=== PATIENT | female | born 1960 | race African-American/Black ===

== ENCOUNTER → 2018-08-23 | Outpatient (CLI) | payer MEDICARE, MEDICAID | LOC: COL.RAD 15:18 | DX: M25.551 Pain in right hip (principal) ==

== ENCOUNTER → 2018-10-10 | Outpatient (CLI) | payer MEDICARE, MEDICAID | LOC: COL.RAD 08:52 | DX: M51.36 Other intervertebral disc degeneration, lumbar region (principal); M46.87 Other specified inflammatory spondylopathies, lumbosacral region ==

== ENCOUNTER → 2018-10-30 | Outpatient (CLI) | payer MEDICARE, MEDICAID | LOC: MHCPAIN 10:48 | DX: G89.29 Other chronic pain (principal); M79.2 Neuralgia and neuritis, unspecified; G90.50 Complex regional pain syndrome I, unspecified; M47.816 Spondylosis without myelopathy or radiculopathy, lumbar region | CPT/HCPCS: G0463 ==

== ENCOUNTER 2018-11-26 09:45 | Outpatient (RCR) | payer MEDICARE, MEDICAID | END 2018-12-02 | disposition still patient (30) | LOC: MKS.ESL.PT | DX: G90.50 Complex regional pain syndrome I, unspecified (principal); M79.671 Pain in right foot; M54.9 Dorsalgia, unspecified | CPT/HCPCS: G0283-GP ==

== ENCOUNTER 2019-01-27 14:00 | Outpatient (RCR) | payer MEDICARE, MEDICAID | END 2019-03-03 | disposition home or self-care (01) | LOC: MKS.ESL.PT | DX: M54.5 Low back pain (principal); M25.571 Pain in right ankle and joints of right foot; G90.50 Complex regional pain syndrome I, unspecified | CPT/HCPCS: G0283-GP ==

== ENCOUNTER → 2019-01-29 | Outpatient (CLI) | payer MEDICARE, MEDICAID | LOC: MHCPAIN 11:00 | DX: G89.29 Other chronic pain (principal); M47.817 Spondylosis without myelopathy or radiculopathy, lumbosacral region; M79.2 Neuralgia and neuritis, unspecified; G90.50 Complex regional pain syndrome I, unspecified | CPT/HCPCS: G0463 ==

== ENCOUNTER 2019-04-29 14:15 | Outpatient (RCR) | payer MEDICARE, MEDICAID | END 2019-05-14 | disposition still patient (30) | LOC: WSC | DX: G90.521 Complex regional pain syndrome I of right lower limb (principal) ==

== ENCOUNTER → 2021-03-15 | Outpatient (CLI) | payer MEDICARE, MEDICAID | LOC: MHCPAIN 09:55 | DX: M47.896 Other spondylosis, lumbar region (principal); M79.2 Neuralgia and neuritis, unspecified; G90.521 Complex regional pain syndrome I of right lower limb | CPT/HCPCS: G0463 ==

== ENCOUNTER → 2021-05-24 | Outpatient (CLI) | payer MEDICARE, MEDICAID | LOC: MHCPAIN 08:54 | DX: M54.2 Cervicalgia (principal); M47.816 Spondylosis without myelopathy or radiculopathy, lumbar region; M79.2 Neuralgia and neuritis, unspecified; M54.50 Low back pain, unspecified | CPT/HCPCS: G0463 ==

== ENCOUNTER 2021-05-27 08:15 | Outpatient (RCR) | payer MEDICARE, MEDICAID | END 2021-05-30 | disposition home or self-care (01) | LOC: WSPT | DX: M47.896 Other spondylosis, lumbar region (principal) ==

== ENCOUNTER 2021-06-24 09:45 | Outpatient (RCR) | payer MEDICARE, MEDICAID | END 2021-06-27 | disposition home or self-care (01) | LOC: WSC | DX: M47.896 Other spondylosis, lumbar region (principal) ==

== ENCOUNTER 2021-07-26 08:15 | Outpatient (RCR) | payer MEDICARE, MEDICAID | END 2021-07-28 | disposition home or self-care (01) | LOC: WSPT | DX: M47.896 Other spondylosis, lumbar region (principal) ==

== ENCOUNTER 2021-08-05 09:45 | Outpatient (RCR) | payer MEDICARE, MEDICAID | END 2021-08-27 | disposition home or self-care (01) | LOC: WSC | DX: M47.896 Other spondylosis, lumbar region (principal) ==

== ENCOUNTER 2021-10-07 11:08 | Inpatient (IN) | payer MEDICARE, MEDICAID ==
[~2021-10-07] VITALS: Ht 162.6 cm; Wt 73.1 kg
[2021-10-07] MEDS ORDERED: COSOPT 2%-0.5%10 ML (12:50)
[2021-10-07] MEDS ORDERED: LUMIGAN 7.5 ML7.5 M1 (12:51)
[2021-10-07] MEDS ORDERED: XIIDRA1 EACH (12:51)
[2021-10-07] MEDS ORDERED: PROTONIX 40MG T40 MG PO (12:51)
[2021-10-07] MEDS ORDERED: NEURONTIN600 MG/TAB PO (12:51)
[2021-10-07] MEDS ORDERED: NORVASC 5MG5 MG/TAB PO (12:52)
[2021-10-07] MEDS ORDERED: LIPITOR 40MG TA40 MG PO (12:53)
[2021-10-07] MEDS ORDERED: ASPIRIN E.C. 8181 MG PO (12:54)
[2021-10-07] MEDS ORDERED: ELIQUIS 5MG PO (12:57)
[2021-10-07 17:16] VITALS: BP 131/64; PULSE 62; TEMP 98.1
[2021-10-07 18:05] VITALS: BP 131/64; PULSE 62; TEMP 98.1
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
[2021-10-08 06:04] VITALS: BP 97/54; PULSE 91; TEMP 97.5
--- NOTE | 2021-10-08 10:52 | NUR ---
Initial visit attempt; Patient out of room, Horse Trekking Guide left card offering God's blessings and information regarding the availability of Spiritual Care at our Hospital.
--- NOTE | 2021-10-08 16:30 | NUR ---
Patient's family presents to the surgical nursing station upset that the patient had an incident in her bathroom. power press supervisor involved. Will attempt intake at a later time.
[2021-10-08 17:49] VITALS: BP 126/80; PULSE 65; TEMP 97.5
--- NOTE | 2021-10-08 19:00 | NUR ---
PT RESTING IN RECLINER. SLEEPY. NO DISTRESS AT THIS TIME.
--- NOTE | 2021-10-08 19:10 | NUR ---
PT TAKEN TO 3RD FLOOR PETER PER W/C FOR TORNADO WARNING. PT WITHOUT DISTRESS.
[2021-10-09 05:25] VITALS: BP 113/63; PULSE 56; TEMP 97.5
--- NOTE | 2021-10-09 09:15 | NUR ---
Assessment complete. Pt A&Ox4. Generalized weakness with left side weakness greater. Assisted to bathroom and back to recliner this morning 1A with walker and gait belt. Gait unsteady at times. Left foot drags as pt walks. Denies pain or other concerns this morning. Chair alarm on and call light in reach.
--- NOTE | 2021-10-09 15:04 | NUR ---
SUJATHA completed intake. Pt lives at home alone. Pt JESUS is her sister, Mary [phone]. Pt is independent on all ADLS and does not use any DME prior to coming in. Pt PCP is Dr. Dandre dozier and gets her medication from [facility]. Pt reports she did not have a DPOA-HC and requested she would like one made. SUJATHA informed pt leodan SW was a [place] notary pubic and could help her with it. SUJATHA gave pt 4 copies and put DPOA-HC in chart. Pt DOPA-HC, Mary shultz. No other needs stated. DC: home
[2021-10-09 18:00] VITALS: BP 127/77; PULSE 84; TEMP 98
--- NOTE | 2021-10-09 18:13 | NUR ---
Pt had good day. No c/o pain. Up to restroom several times today, tolerated walks well. Continues to be unsteady at times. Up in recliner for several hours. No BMs but is passing gas. Denies needs.
--- NOTE | 2021-10-09 18:55 | NUR ---
PT RESTING IN RECLINER. NO NEEDS AT THIS TIME. CALL LIGT IN REACH.
--- NOTE | 2021-10-10 06:08 | NUR ---
MOD ASSIST TO BR WITH WALKER. HAVING OCCASIONAL MUSCLE SPAMS IN LT THIGH. AMB TO SINK WASH FACE AND BRUSHED TEETH INDEPENDENTLY. BACK TO BED.
[2021-10-10 06:38] VITALS: BP 106/66; PULSE 77; TEMP 97.4
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
--- NOTE | 2021-10-10 15:06 | NUR ---
SUJATHA met with the patient to introduce oneself and to follow up. The patient was sitting up in her chair and states that she needed to see social work. She was curious about what she would need upon discharge. SUJATHA informed the patient that the team will evaluate what services or equipment she will need upon discharge and we will assist with getting the services or equipment ordered. The patient states that her family has already purchased her a rollator. The patient states that she will probably need in-home services. SUJATHA informed her the difference of home health services vs private duty services. The patient is interested in finding out if her Medicaid will approve any in-home services. SUJATHA provided the patient with [facility] Agency on Aging's contact phone number to set up an interview time, to inquire if her insurance will approve any hours. The patient verbalized understanding and she thanked SUJATHA for the information.
--- NOTE | 2021-10-10 15:21 | NUR ---
THE PATIENT HAS HAD AN EVENTFUL DAY WITH PT/OT/ST. PATIENT SHOWERED INDEPENDENTLY WITH ASSISTANCE INTO AND OUT OF THE SHOWER. THE PATIENT CONTINUES TO HAVE SOME WEAKNESS TO THE LEFT SIDE WITH DIFFICULTY PICKING UP THE FOOT OFF THE GROUND. NO OTHER CONCERNS THE PATIENT STATES SHE FEELS SAFE TODAY. WILL CONTINUE TO MONITOR.
[2021-10-10 18:00] VITALS: BP 131/87; PULSE 76; TEMP 97.8
--- NOTE | 2021-10-10 18:35 | NUR ---
AT 1740 THE PATIENT'S SISTER CAME RUNNING ONTO THE [facility] FLOOR YELLING OBSCENITIES ASKING "WHAT THE FUCK IS YOUR PROBLEM!? SOMEONE GET OFF YOUR ASS AND GET INTO MY SISTER'S FUCKING ROOM!!" THIS RN WAS SITTING AT THE [facility] DESK UNAWARE OF THE CALL MADE BY THE PATIENT. UPON ENTRY TO THE PATIENT'S ROOM, THE PATIENT WAS NOTABLY ALTERED. NEURO CHECK ON THE PATIENT SHOWS WEAKNESS IN BILATERAL ARMS, WEAKNESS IN BILATERAL LEGS, AND WORSENING ON THE RIGHT SIDE RATHER THAN THE LEFT THAT WAS PREVIOUSLY AFFECTED. THE PATIENT FOLLOWED COMMANDS, WAS ABLE TO SMILE WITH MINOR ASSYMETRY ON THE RIGHT SIDE, WAS ABLE TO STICK OUT HER TONGUE HOWEVER IT DID DEVIATE SLIGHTLY TO THE LEFT. THE PATIENT'S EYES WOULD NOT TRACK TO THE LEFT SIDE, AND WERE VERY SLUGGISH. THE PATIENT WAS DISORIENTED, DID NOT KNOW WHERE SHE WAS, AND WAS VERY SCARED AND TEARFUL. INITIAL BLOOD PRESSURE WAS 152/100 AND HR WAS 102 OXYGEN SATURATION WAS 95%. THE PROVIDER, CARLOS HASSAN WAS NOTIFIED IMMEDIATELY AND WAS ASKED TO COME TO THE PATIENT'S ROOM. PROVIDER ARRIVED AND DID A NEURO CHECK. THE PROVIDER ORDERED A HEAD/NECK CT STAT. THIS RN TOOK THE PATIENT DOWN TO CT. PATIENT HAD NO IV, SO THIS RN STARTED A 20G DIFFUSICS IN THE LEFT FOREARM. WHILE AT CT, THE PATIENT EXPRESSED THAT SHE WAS HAVING A VERY BAD HEADACHE, AND WAS HAVING BLURRY VISION. UPON RETURN TO THE MEDICAL FLOOR, THE PATIENT WAS CRYING IN FEAR. THIS RN REQUESTED ANXIETY MEDICATION FOR THE PATIENT DUE TO SEVERE ANXIETY SHE WAS DISPLAYING. WHILE IN THE ROOM, THE PATIENT BEGAN VOMITTING. CONTACTED THE PROVIDER AGAIN TO ASK FOR ZOFRAN. BOTH ATIVAN AND ZOFRAN WERE ADMINISTERED. THE PATIENT DID BEGIN TO CALM DOWN AND STATED THAT SHE COULD SEE PEOPLES FACES AGAIN AND THAT SHE WAS NOT ASK SCARED.
--- NOTE | 2021-10-10 19:10 | NUR ---
REPORT GIVEN TO KATIA SAINZ.
--- NOTE | 2021-10-10 23:55 | NUR ---
PATIENT DROWSY ON ROOM ENTRY. BEDSIDE SHIFT REPORT COMPLETED. FAMILY AT BEDSIDE. CTA REPORT DISCUSSED WITH SONYA GONZALEZ, NO ACUTE CHANGES, NO NEW ORDERS AT THIS TIME. PATIENT AMBULATED X1 ASSIST WITH WALKER TO BATHROOM AND VOIDED. EYES ARE EQUAL AND REACTIVE. SLIGHT L SIDED WEAKNESS TO UPPER ARM AND L FOOT DRAG NOTED WHEN WALKING. HS MEDS PER EMAR. PATIENT HAD CRACKERS AND PB FOR SNACK. PRN FLEXERIL GIVEN FOR MUSCLE PAIN.
[2021-10-11 05:18] VITALS: BP 102/65; PULSE 64; TEMP 97.7
--- NOTE | 2021-10-11 07:09 | NUR ---
Shift report received from maintenance supervisor 2nd shift RN [place]. Pt. lying in right side position in bed. Call light is within her reach
--- NOTE | 2021-10-11 09:12 | NUR ---
Pt. is sitting in recliner. She has just finished showering with OT. She denies pain or discomfort at this time. OT staff in room with pt helping her get dressed. Call light is within her reach
--- NOTE | 2021-10-11 09:50 | NUR ---
Pt. sitting up in recliner applying her make-up. She denies pain or discomfort at this time. She reported to Dr. Dietz this morning that her left eye seems different than her right eye. Left eye appears slightly puffy around the eye. No itching. No redness to sclera. No eye drainage or vision changes. Will continue to monitor. Pt. denies further needs at this time. Call light is within her reach
[2021-10-11 17:35] VITALS: BP 111/70; PULSE 78; TEMP 98.2
--- NOTE | 2021-10-11 17:37 | NUR ---
Pt. has completed her dinner. She is sitting in her recliner with BLE elevated on the foot rest. Pt's sister visited this afternoon and brought in a walker for pt. to use. Pt. label placed on walker with pt's permission. She denies pain or discomfort. Denies further needs. Call light is within her reach
--- NOTE | 2021-10-12 02:10 | NUR ---
PATIENT ALERT AND ORIENTED. DENIES PAIN. HS MEDS PER EMAR. REPORTS HER VISION IS BACK TO NORMAL FROM YESTERDAY. AMBULATES WITH STANDBY ASSIST AND USE OF NEW WALKER TO BATHROOM SEVERAL TIMES THROUGHOUT THE NIGHT WITHOUT ISSUE. INSTRUCTED PATIENT OF PROPER USE OF NEW WALKER AND ENCOURAGED USE OF BRAKES WHEN NEEDED.
[2021-10-12 05:39] VITALS: BP 118/80; PULSE 83; TEMP 97.7
--- NOTE | 2021-10-12 07:04 | NUR ---
Shift received from night guard RN. Pt. lying in left side position in bed. She denies pain or discomfort at this time, denies further needs. Call light is within her reach
--- NOTE | 2021-10-12 10:34 | NUR ---
Pt. ambulating in hallway with PT.
--- NOTE | 2021-10-12 14:33 | NUR ---
SUJATHA met with the patient to present and review the IPR Team Conference Note. The patient's sister, Mary, then arrived to her room. The team has set a discharge date for next Sunday, 10/21, with outpatient PT/OT and possible ST. The patient and her sister are in agreement to the plan. A patient/family meeting was scheduled for next Sunday, 10/18, at 1000. Mary plans to attend the meeting in person. SUJATHA updated IPR Director.
--- NOTE | 2021-10-12 16:18 | NUR ---
Pt resting in bed in a left side lying position. She reports feeling "worn out" after PT/OT today. She denies pain or discomfort. Denies further needs. Call light is within her reach
[2021-10-12 17:40] VITALS: BP 115/74; PULSE 94; TEMP 97.9
--- NOTE | 2021-10-12 20:01 | NUR ---
RESTING IN BED VISITING WITH FAMILY. DENIES NEEDS AT THIS TIME. LEFT SIDED WEAKNESS. DENESS FURTHER OR INCREASED WEAKNESS OR TINGLING TO RT SIDE. INT TO LT F/A. CALL LIGHT IN REACH. BED ALARM SET.
[2021-10-13 05:00] VITALS: BP 106/65; PULSE 83; TEMP 97.7
--- NOTE | 2021-10-13 16:20 | NUR ---
PT HAD GOOD THERAPY TODAY, FAMILY VISITS. DID MOVE FROM ONE ROOM TO ANOTHER DUE TO NEEDED UPGRADE TO COMPUTER IN ROOMS. HAD SOME ANIEXTY W CHANGES. XANAX GIVEN. CALL LIGHT WI REACH. NEEDS MET.
--- NOTE | 2021-10-13 19:36 | NUR ---
RECEIVED CHANGE OF SHIFT REPORT FROM DAY SHIFT RN.
[2021-10-14 05:27] VITALS: BP 107/62; PULSE 69; TEMP 97.8
--- NOTE | 2021-10-14 07:30 | NUR ---
CHANGE OF SHIFT REPORT GIVEN TO DAY SHIFT RNMARBELLA.
[2021-10-14 16:46] VITALS: BP 121/74; PULSE 80; TEMP 97.4
--- NOTE | 2021-10-14 18:21 | NUR ---
PT HAS DONE WELL TODAY, BEEN IN A CHEERFUL MOOD, STATES THAT SHE FEELS GOOD BESIDES THE CONSISTENT HEADACHE, HAS BEEN GIVEN TYLENOL WHEN REQUESTED. PT IS MOD-I IN ROOM WITH WALKER, TOLERATELY WELL. PT DENIES NEEDS. CALL LIGHT WITHIN REACH.
--- NOTE | 2021-10-14 19:00 | NUR ---
RECEIVED CHANGE OF SHIFT REPORT FROM DAY SHIFT RN.
--- NOTE | 2021-10-14 20:15 | NUR ---
PATIENT REPORTS L SIDED WEAKNESS MORE EVIDENT WITH FATIGUE. DENIES L SIDED WEAKNESS AND NONE OBSERVED AT THIS TIME.
[2021-10-15 05:13] VITALS: BP 105/69; PULSE 76; TEMP 97.8
--- NOTE | 2021-10-15 07:08 | NUR ---
CHANGE OF SHIFT REPORT GIVEN TO DAY SHIFT RNJERRI. PATIENT UP INDEPENDENTLY PER P.T. REPORTS PAIN IS MANAGED WITH FLEXERIL AND TYLENOL.
--- NOTE | 2021-10-15 07:27 | NUR ---
Shift report received from golf club weighter RN. Pt. resting in left side lying position. Call light is within her reach
--- NOTE | 2021-10-15 10:38 | NUR ---
Pt. has returned to unit after Group Therapy (PT). She remains Mod I in room. She denies pain or discomfort. Denies further needs. Call light is within her reach
[2021-10-15 17:32] VITALS: BP 117/82; PULSE 74; TEMP 97.9
--- NOTE | 2021-10-15 19:40 | NUR ---
RECEIVED CHANGE OF SHIFT REPORT FROM DAY SHIFT RN. PATIENT UP IN CHAIR CURRENTLY, VISITOR IN ROOM. PATIENT UP IN ROOM PER SELF WITH NO REPORTED PROBLEMS OR CONCERNS. PATIENT REQUESTING XANAX WITH [facility] JEANNIE. CALL LIGHT WITHN REACH.
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
[2021-10-16 05:52] VITALS: BP 108/66; PULSE 71; TEMP 97.8
--- NOTE | 2021-10-16 06:19 | NUR ---
PATIENT REPORT HAD BM LAST NIGHT AFTER HS MEDS GIVEN, REPORTED BM SOFT FORMED AND MEDIUM IN SIZE BUT WAS UNABLE TO RECALL COLOR OF STOOL. REPORTED ABD IS LESS BLOATED AND IS PASSING MORE FLATUS AFTER STOOL PASSED. DENIES ANY FURTHER NEEDS AT THIS TIME.
--- NOTE | 2021-10-16 06:59 | NUR ---
Shift report received from shift boss RN. Pt. resting supine in bed. Call light is within her reach
--- NOTE | 2021-10-16 07:03 | NUR ---
CHANGE OF SHIFT REPORT GIVEN TO DAY SHIFT RNJERRI.
--- NOTE | 2021-10-16 14:51 | NUR ---
Pt. reporting that she noticed a red, non-itchy rash to her left inner thigh after she showered this morning. Rash was not raised per pt. Rash is not currenlty present. Pt. stated that she applied emu oil and lavendar to the red area. Advised pt to notify nurse if she notices the rash again. Pt. v/u.
[2021-10-16 17:15] VITALS: BP 116/65; PULSE 73; TEMP 97.9
--- NOTE | 2021-10-16 19:12 | NUR ---
RECEIVED CHANGE OF SHIFT REPORT FROM DAY SHIFT RN. PATIENT UP IN ROOM PER SELF WITH NO REPORTED PROBLEMS OR CONCERNS. CALL LIGHT WITHIN REACH.
[2021-10-17 05:20] VITALS: BP 111/72; PULSE 78; TEMP 98.1
--- NOTE | 2021-10-17 06:58 | NUR ---
CHANGE OF SHIFT REPORT GIVEN TO DAY SHIFT RNJERRI.
--- NOTE | 2021-10-17 07:36 | NUR ---
Shift report received from security shift supervisor RN. Pt. awake in bed. HOB elevated approx 30 degrees. She denies pain/discomfort. Denies further needs. Call light is within her reach
[2021-10-17 11:04] VITALS: BP 112/64
--- NOTE | 2021-10-17 15:04 | NUR ---
Pt. resting in recliner. Denies pain or discomfort. She remains Mod I in room. She is looking forward to hospital discharge this week. She denies further needs. Call light is within her reach
[2021-10-17 17:19] VITALS: BP 127/71; PULSE 67; TEMP 98.4
--- NOTE | 2021-10-17 23:06 | NUR ---
PATIENT IN CHAIR AT ROOM ENTRY. C/O MODERATE HEADACHE. BP WAS 121/78. HS MEDS PER EMAR, PRN TYLENOL FOR HEADACHE. PATIENT REMAINS MOD I WITHOUT ISSUES. ICE GIVEN PER PATIENTS REQUEST FOR L EYE PUFFINESS. CURRENTLY IN BED, EYES CLOSED, RR EVEN AND UNLABORED.
[2021-10-18 05:41] VITALS: BP 98/70; PULSE 76; TEMP 97.8
--- NOTE | 2021-10-18 08:30 | NUR ---
PT SITTING UP IN CHAIR ON ROOM AIR. PT STATES THAT SHE DID HAVE A HEADACHE BUT GOT SOME TYLENOL AND IT FEELS BETTER NOW. THERAPY AT BEDSIDE READY TO WORK WITG PT. PT STATES THAT SHE DOES NOT NEED ANYTHIGN RIGHT NOW. "I AM JUST WAITING TO GET STARTED WORKING." CALL LIGHT IS WITHIN REACH.
--- NOTE | 2021-10-18 11:00 | NUR ---
Patient/Family meeting conducted w/ pt & sister. Also present was the MD, PT, OT, ST, & director of industrial relations. Dr. Dietz explained the medical aspect & answered questions. The team talked about how pt has been doing & answered questions. Informed them of d/c for 10/19/21, w/ recommendation for outpatient PT/OT. She feels she is doing better & ready to d/c Sunday. Sister did voice frustration w/ issues early on w/ staff answering call light.
--- NOTE | 2021-10-18 15:18 | NUR ---
SW met with patient and presented her with the [facility].IM form. Education provided and patient verbalized her agreement with discharge plan for tomorrow back to home with outpatient therapy. Signed original placed in the patient's chart and copy provided back to the patient. Patient verbalized that she would like therapy set up at the [facility] outpatient clinic on [address]. Provided patient with contact number [facility]
[2021-10-18 17:34] VITALS: BP 118/75; PULSE 88; TEMP 97.8
--- NOTE | 2021-10-18 18:26 | NUR ---
PT SITTING UP IN CHAIR WITH FAMILY AT BEDSIDE. PT STATES NO PAIN OR NEEDS AT THIS TIME. CALL LIGHT IS WITHIN REACH.
--- NOTE | 2021-10-18 22:07 | NUR ---
PATIENT ALERT AND ORIENTED. IN BED ON ROOM ENTRY. DENIES PAIN CURRENTLY BUT STATES SHE WAS HAVING SOME L EAR PAIN THAT IS RESOLVED AT THIS TIME. HS MEDS PER EMAR. DENIES ADDITIONAL NEEDS.
[2021-10-19 05:58] VITALS: BP 106/63; PULSE 75; TEMP 98.2
--- NOTE | 2021-10-19 07:06 | NUR ---
Shift report received from shift nurse manager RN. Pt awake and sitting in recliner. She denies pain/discomfort. Denies additional needs. She remains Mod I in room. Call light is within her reach
[2021-10-19] MEDS ORDERED: ELIQUIS 5MG PO (08:50)
[2021-10-19] MEDS ORDERED: FLEXERIL 1010 MG/TAB PO (08:50)
[2021-10-19] MEDS ORDERED: LIPITOR 40MG TA40 MG PO (08:51)
[2021-10-19] MEDS ORDERED: ASPIRIN E.C. 8181 MG PO (08:51)
[2021-10-19] MEDS ORDERED: AMITRIPTYLINE H10 M1 PO (08:51)
[2021-10-19] MEDS ORDERED: PROTONIX 40MG T40 MG PO (08:52)
[2021-10-19] MEDS ORDERED: TYLENOL 325MG325 MG PO (08:54)
[2021-10-19] MEDS ORDERED: ULTRAM 50MG TAB50 MG PO (08:54)
[2021-10-19] MEDS ORDERED: XANAX .25M0.25 MG/TA PO (08:56)
[2021-10-19] MEDS ORDERED: FIORICET 325 MG1 TA1 PO (09:26)
--- NOTE | 2021-10-19 10:49 | NUR ---
Discharge Summary, Health Summary, Home Meds reviewed with patient. Belonging were gathered by the patient. Discussed follow up appointments. Pt. verbalized understanding and had no questions. She is waiting for her sister to pick her up to drive her home
--- NOTE | 2021-10-19 11:39 | NUR ---
Pt escorted to vehicle and seatbelted for ride home
--- NOTE | 2021-10-19 12:30 | NUR ---
Per Dr. Palomo, pt. needs to schedule with ophthalmology. Called patient and she prefers [facility]. Will call to schedule an appt and will notify pt. of appt date/time
--- NOTE | 2021-10-19 12:38 | NUR ---
Medical Clerical Assistant contacted [facility] on [address] and scheduled PT appointment for 10/21/21 at 0900. OT to be scheduled with patient at her PT appointment. SW faxed referral and orders.
== END 2021-10-19 11:25 | disposition home or self-care (01) | DRG 57 ==
PROVIDERS: ADMIT Physical Medicine & Rehabilitation Sports Medicine
DX: I69.354 Hemiplegia and hemiparesis following cerebral infarction affecting left non-dominant side (principal); G90.521 Complex regional pain syndrome I of right lower limb; F15.20 Other stimulant dependence, uncomplicated; I69.392 Facial weakness following cerebral infarction; I69.318 Other symptoms and signs involving cognitive functions following cerebral infarction; I69.322 Dysarthria following cerebral infarction; I69.328 Other speech and language deficits following cerebral infarction; K59.00 Constipation, unspecified; G62.9 Polyneuropathy, unspecified; I10 Essential (primary) hypertension; K21.9 Gastro-esophageal reflux disease without esophagitis; H40.9 Unspecified glaucoma; Z79.01 Long term (current) use of anticoagulants; Z79.899 Other long term (current) drug therapy; Z79.82 Long term (current) use of aspirin; R42 Dizziness and giddiness; R11.10 Vomiting, unspecified
CPT/HCPCS: 99222; 99231-AI; 99232-AI; J2060; J2405; Q9967

== ENCOUNTER 2021-10-26 14:15 | Outpatient (RCR) | payer MEDICARE, MEDICAID ==
[~2021-10-26 14:15] MED LIST: AMITRIPTYLINE H10 M1 PO; ASPIRIN E.C. 8181 MG PO; COSOPT 2%-0.5%10 ML; ELIQUIS 5MG PO; FIORICET 325 MG1 TA1 PO; FLEXERIL 1010 MG/TAB PO; LIPITOR 40MG TA40 MG PO; LUMIGAN 7.5 ML7.5 M1; NEURONTIN600 MG/TAB PO; NORVASC 5MG5 MG/TAB PO; PROTONIX 40MG T40 MG PO; TYLENOL 325MG325 MG PO; ULTRAM 50MG TAB50 MG PO; XANAX .25M0.25 MG/TA PO; XIIDRA1 EACH
== END 2021-10-27 | disposition home or self-care (01) ==
LOC: WSC
DX: I69.354 Hemiplegia and hemiparesis following cerebral infarction affecting left non-dominant side (principal)

== ENCOUNTER 2021-11-24 13:30 | Outpatient (RCR) | payer MEDICARE, MEDICAID | END 2021-11-27 | disposition home or self-care (01) | LOC: WSC | DX: I69.354 Hemiplegia and hemiparesis following cerebral infarction affecting left non-dominant side (principal) ==

== ENCOUNTER 2021-12-06 22:38 | Inpatient (IN) | payer MEDICARE, MEDICAID ==
[~2021-12-06] VITALS: Ht 162.6 cm; Wt 68.6 kg
[2021-12-06 23:17] LABS: BASO # 0.1 K/mm3 (0.0-0.2); BASO % 0.6 % (0.0-2.0); EOS # 0.4 K/mm3 (0.0-0.7); EOS % 3.6 % (0.0-4.0); GRAN # 6.1 K/mm3 (1.4-6.5); GRAN % 52.4 % (42.2-75.2); HEMATOCRIT 39.2 % (37.0-47.0); HEMOGLOBIN 13.9 g/dl (12.5-16.0); LYMPH # 4.3 K/mm3 (1.2-3.4); LYMPH % 37.2 % (20.0-51.0); MEAN CELL VOLUME 87 fl (80.0-100.0); MEAN CORPUSCULAR HEMOGLOBIN 31 pg (27-31); MEAN CORPUSCULAR HGB CONC 36 g/dl (33.0-37.0); MEAN PLATELET VOLUME 11.9 fl (7.4-10.4); MONO # 0.7 K/mm3 (0.1-0.6); MONO % 5.9 % (1.7-9.3); PLATELET COUNT 174 K/mm3 (130-400); RED BLOOD COUNT 4.52 M/mm3 (4.10-5.30); REDCELL DISTRIBUTION WIDTH-CV 15.9 % (11.5-14.5)
[2021-12-07] VITALS (12 sets, daily range): BP systolic 90–169; BP diastolic 47–108; PULSE 60–119; TEMP 97.4–98.7
[2021-12-07 00:08] LABS: INR 1.3 (0.8-3.0); PROTHROMBIN TIME 14.4 SECONDS (9.7-12.8)
[2021-12-07 00:10] LABS: COLLECTION METHOD IN
[2021-12-07 00:14] LABS: ALBUMIN 3.6 gm/dL (3.5-5.0); BILIRUBIN,TOTAL 0.4 mg/dL (0.2-1.2); CALCIUM 8.9 mg/dL (8.4-10.2); CREATININE, serum 0.81 mg/dL (0.57-1.11); POTASSIUM 3.9 mmol/L (3.5-4.5); TOTAL PROTEIN 7.1 gm/dL (6.2-8.1)
[2021-12-07 00:19] LABS: SQUAMOUS EPITHELIAL None Seen /hpf (0-10); URINE BACTERIA None Seen /hpf (NONE SEEN); URINE RBC 0-2 /hpf (0-2)
[2021-12-07 00:26] LABS: PH 8 (5-8); URINE APPEARANCE Cloudy (CLEAR/HAZY); URINE COLOR Yellow (YELLOW)
[2021-12-07 00:27] LABS: URINE BLOOD Negative (NEGATIVE); URINE GLUCOSE Negative (NEGATIVE); URINE KETONE Negative (NEGATIVE); URINE NITRATE Negative (NEGATIVE); URINE PROTEIN(semi-quant) 1+ (NEGATIVE)
[2021-12-07 08:42] LABS: HEMOGLOBIN 12.4 g/dl (12.5-16.0); MEAN CELL VOLUME 85 fl (80.0-100.0); MEAN CORPUSCULAR HEMOGLOBIN 30 pg (27-31); MEAN CORPUSCULAR HGB CONC 36 g/dl (33.0-37.0); MEAN PLATELET VOLUME 11.1 fl (7.4-10.4); PLATELET COUNT 236 K/mm3 (130-400); RED BLOOD COUNT 4.12 M/mm3 (4.10-5.30); REDCELL DISTRIBUTION WIDTH-CV 13.7 % (11.5-14.5)
[2021-12-07 08:43] LABS: HEMATOCRIT 34.9 % (37.0-47.0)
[2021-12-07 12:23] LABS: TRICYCLIC ANTIDEPRESS URINE POSITIVE
[2021-12-08 03:34] VITALS: BP 104/70; PULSE 85; TEMP 97.7
[2021-12-08 04:32] LABS: C-REACTIVE PROTEIN 0.23 mg/dL (0.00-0.50)
[2021-12-08 04:45] LABS: CHOLESTEROL RISK RATIO 3.5
[2021-12-08 07:58] VITALS: BP 99/76; PULSE 69; TEMP 98.2
--- NOTE | 2021-12-08 09:28 | NUR ---
SUJATHA met with the patient to discuss discharge plan. The patient lives alone in [place]. She reports needing occasional assistance with with ADLs and has a cane and rollator. She states that she does everything on her own and was told that help in the home would be private pay. SUJATHA educated the patient on how private duty/recruiting manager services would be private pay. The patient does have Medicaid. SUJATHA informed her that she could apply to get hours approved through her insurance and how [facility] could assist her with this. The patient verbalized understanding. The patient's primary care provider is CARLOS Schafer and she receives her medications from [facility]. The patient's DPOA-HC is in EMR and it designates her sister, Mary Fernando (ph#[phone]). The alternate is her daughter, Yara Denton. They both live in [place]. The patient plans to return home upon discharge. SUJATHA discussed home health services upon discharge. The patient states she is "too spunky" for home health. PT/OT have been ordered. *Discharge plan: home. Will await PT/OT recs*
[2021-12-08 11:29] VITALS: BP 112/92; PULSE 83; TEMP 98.2
--- NOTE | 2021-12-08 11:40 | NUR ---
Rico cath dc'd as ordered w/out trauma or difficulty. Pt is currently NPO due to scheduled MRI. Discussed the importance of hydrating and urinating. Pt. v/u
--- NOTE | 2021-12-08 14:52 | NUR ---
The team is ready to discharge the patient today. PT recommeds outpatient PT. OT recommends home health. SW met with the patient to discuss their recommendations. The patient states that she already receives outpatient therapy at [facility] on [address] and does their aquatic therapy. She states that her next appointment there is tomorrow and she plans to resume this. No additional needs at this time.
[2021-12-08 15:23] VITALS: BP 95/52; PULSE 66; TEMP 98.2
--- NOTE | 2021-12-08 17:55 | NUR ---
PT WAS DISCHARGE AT 1600, STABLE WITH DAUGHTER, DISCHARGE INSTRUCTIONS GIVEN, FOLLOW UP APPOINTMENT INSTRUCTED.
== END 2021-12-08 16:00 | disposition home health service (06) | DRG 57 ==
LOC: COL.ER 22:38 → SURG 12-07 00:58
PROVIDERS: Personal Emergency Response Attendant; Psychiatry & Neurology Neurology; Student in an Organized Health Care Education/Training Program; ADMIT Internal Medicine
DX: I69.354 Hemiplegia and hemiparesis following cerebral infarction affecting left non-dominant side (principal); I69.320 Aphasia following cerebral infarction; F12.90 Cannabis use, unspecified, uncomplicated; I10 Essential (primary) hypertension; K21.9 Gastro-esophageal reflux disease without esophagitis; H40.9 Unspecified glaucoma; G62.9 Polyneuropathy, unspecified; I65.21 Occlusion and stenosis of right carotid artery; F17.210 Nicotine dependence, cigarettes, uncomplicated; F19.10 Other psychoactive substance abuse, uncomplicated; R51.9 Headache, unspecified; M79.661 Pain in right lower leg; Z86.718 Personal history of other venous thrombosis and embolism; Z79.01 Long term (current) use of anticoagulants; Z79.82 Long term (current) use of aspirin
CPT/HCPCS: OP; A9575; J0780; J1200; J1644; J2270; J2405; J7030; Q9967

== ENCOUNTER 2021-12-27 13:30 | Outpatient (RCR) | payer MEDICARE, MEDICAID | END 2021-12-28 | disposition home or self-care (01) | LOC: WSPT | DX: I69.354 Hemiplegia and hemiparesis following cerebral infarction affecting left non-dominant side (principal) ==

== ENCOUNTER → 2022-01-24 | Outpatient (CLI) | payer MEDICARE, MEDICAID | LOC: MC.RAD 09:14 | DX: Z12.31 Encounter for screening mammogram for malignant neoplasm of breast (principal); N63.20 Unspecified lump in the left breast, unspecified quadrant ==

== ENCOUNTER → 2023-01-09 | Outpatient (CLI) | payer MEDICARE, MEDICAID ==
[~2023-01-09] MED LIST changes: +AMERGE 2.5MG T2.5 MG PO; +AMITRIPTYLINE H75 M1 PO; -COSOPT 2%-0.5%10 ML; +COSOPT 2%-0.5%10 ML OU; +ISOPTIN SR120 MG PO; +NORCO 325 MG-51 TAB PO; +PLAVIX 75MG TAB75 MG PO; +TOPROL XL 25MG25 MG PO; +VISTARIL 2525 MG/CAP PO; +ZOFRAN 4MG T4 MG/TAB PO
== END ==
LOC: MHCPAIN 13:05
DX: M47.817 Spondylosis without myelopathy or radiculopathy, lumbosacral region (principal); M54.50 Low back pain, unspecified; G90.521 Complex regional pain syndrome I of right lower limb
CPT/HCPCS: G0463

== ENCOUNTER 2023-06-04 20:57 | Emergency (ER) | payer MEDICARE, MEDICAID ==
[~2023-06-04] VITALS: Ht 162.6 cm; Wt 81.8 kg
[2023-06-04 21:36] LABS: BASO # 0.1 K/mm3 (0.0-0.2); BASO % 0.3 % (0.0-2.0); EOS # 0.3 K/mm3 (0.0-0.7); EOS % 2.2 % (0.0-4.0); GRAN # 8.5 K/mm3 (1.4-6.5); GRAN % 57.7 % (42.2-75.2); HEMATOCRIT 42.7 % (37.0-47.0); HEMOGLOBIN 14.8 g/dl (12.5-16.0); LYMPH % 34.1 % (20.0-51.0); MEAN CELL VOLUME 86 fl (80.0-100.0); MEAN CORPUSCULAR HEMOGLOBIN 30 pg (27-31); MEAN CORPUSCULAR HGB CONC 35 g/dl (33.0-37.0); MEAN PLATELET VOLUME 10.1 fl (7.4-10.4); MONO # 0.8 K/mm3 (0.1-0.6); MONO % 5.3 % (1.7-9.3); PLATELET COUNT 293 K/mm3 (130-400); RED BLOOD COUNT 4.95 M/mm3 (4.10-5.30); REDCELL DISTRIBUTION WIDTH-CV 14.9 % (11.5-14.5)
[2023-06-04 21:51] LABS: PROTHROMBIN TIME 10.5 SECONDS (9.7-12.8)
[2023-06-04 21:52] LABS: ALANINE AMINOTRANSFERASE 60 U/L (0-55); ALBUMIN 4.3 gm/dL (3.4-4.8); ALKALINE PHOSPHATASE 117 U/L (40-150); ANION GAP 8 mmol/L (7-16); AST,SGOT 31 U/L (5-34); BILIRUBIN,TOTAL 0.3 mg/dL (0.2-1.2); BLOOD UREA NITROGEN 12 mg/dL (10-20); CALCIUM 10.1 mg/dL (8.4-10.2); CARBON DIOXIDE 26 mmol/L (23-31); CHLORIDE 106 mmol/L (98-107); CREATININE, serum 1.03 mg/dL (0.57-1.11); GLUCOSE 117 mg/dL (70-99); LIPASE 37 U/L (8-78); POTASSIUM 4.5 mmol/L (3.5-4.5); SODIUM 140 mmol/L (136-145); TOTAL PROTEIN 8.5 gm/dL (6.2-8.1)
[2023-06-04 21:53] LABS: ALCOHOL(ethanol),MEDICAL < 10 mg/dL (0-10)
[2023-06-04 21:54] LABS: PARTIAL THROMBOPLASTIN TIME 27.2 SECONDS (26.0-37.0)
[2023-06-04 22:03] LABS: TROPONIN-I < 0.010 ng/mL (0.00-0.033)
[2023-06-04] MEDS ORDERED: Iohexol 300 - 100 ML VIAL IV ONE (22:15)
[2023-06-04 22:47] LABS: TRICYCLIC ANTIDEPRESS URINE NEGATIVE (NEGATIVE)
[2023-06-05] VITALS (37 sets, daily range): BP systolic 103–134; BP diastolic 70–89; PULSE 80–103; TEMP 97.7; O2SAT 72–100
[2023-06-05] MEDS ORDERED: Acetaminophen 500 MG TAB PO ONE (00:45)
[2023-06-05] MEDS ORDERED: Melatonin 3 MG TAB PO PRN (03:15)
[2023-06-05] MEDS ORDERED: Docusate Sodium 100 MG CAP PO PRN (03:15)
[2023-06-05] MEDS ORDERED: Ondansetron 4 MG/2 ML VIAL IV PRN (03:15)
[2023-06-05] MEDS ORDERED: Acetaminophen 325 MG TAB PO PRN (03:15)
[2023-06-05] MEDS ORDERED: hydrALAZINE 20 MG/ML 1 ML VIAL IV PRN (05:15)
[2023-06-05] MEDS ORDERED: LIPITOR 40MG TA40 MG PO (06:07)
[2023-06-05] MEDS ORDERED: TYLENOL 325MG325 MG PO (06:09)
[2023-06-05] MEDS ORDERED: Regadenoson 0.08 MG/ML 5 ML SYRINGE IV SCH (10:53)
[2023-06-05] MEDS ORDERED: ASPIRIN E.C. 8181 MG PO (13:34)
[2023-06-05] MEDS ORDERED: NITROSTAT0.4 MG/TAB SL (13:34)
== END 2023-06-05 14:39 | disposition other institution (70) ==
LOC: COL.ER 20:57
PROVIDERS: Emergency Medicine
DX: R07.89 Other chest pain (principal); D72.829 Elevated white blood cell count, unspecified; R74.01 Elevation of levels of liver transaminase levels; R94.4 Abnormal results of kidney function studies; R03.0 Elevated blood-pressure reading, without diagnosis of hypertension; R20.2 Paresthesia of skin; F17.210 Nicotine dependence, cigarettes, uncomplicated; F17.290 Nicotine dependence, other tobacco product, uncomplicated; Z86.73 Personal history of transient ischemic attack (TIA), and cerebral infarction without residual deficits
CPT/HCPCS: A9500-JZ; J2785; Q9967

== ENCOUNTER 2023-11-13 03:49 | Inpatient (IN) | payer MEDICARE, MEDICAID ==
[~2023-11-13] VITALS: Ht 162.6 cm; Wt 78.4 kg
[~2023-11-13 03:49] MED LIST changes: +AMITRIPTYLINE H25 M1 PO; -AMITRIPTYLINE H75 M1 PO; +NITROSTAT0.4 MG/TAB SL
[2023-11-13 04:02] LABS: HEMOGLOBIN 12.8 g/dl (12.5-16.0); MEAN CELL VOLUME 83 fl (80.0-100.0); MEAN CORPUSCULAR HEMOGLOBIN 30 pg (27-31); MEAN CORPUSCULAR HGB CONC 36 g/dl (33.0-37.0); MEAN PLATELET VOLUME 10.4 fl (7.4-10.4); PLATELET COUNT 279 K/mm3 (130-400); RED BLOOD COUNT 4.31 M/mm3 (4.10-5.30); REDCELL DISTRIBUTION WIDTH-CV 14.3 % (11.5-14.5)
[2023-11-13 04:03] LABS: HEMATOCRIT 35.6 % (37.0-47.0)
[2023-11-13 04:08] LABS: INR 1.1 (0.8-3.0); PROTHROMBIN TIME 11.6 SECONDS (9.7-12.8)
[2023-11-13 04:11] LABS: PARTIAL THROMBOPLASTIN TIME 32.7 SECONDS (26.0-37.0)
[2023-11-13 04:16] LABS: BAND 1 % (0-10); EOSINOPHIL 1 % (0-4); LYMPHOCYTE 42 % (20.0-51.0); NEUTROPHILS 52 % (42.0-75.2); PLATELET ESTIMATE NORMAL (NORMAL); TARGET CELLS 1+
[2023-11-13 04:20] LABS: ALANINE AMINOTRANSFERASE 28 U/L (0-55); ALKALINE PHOSPHATASE 115 U/L (40-150); ANION GAP 12 mmol/L (7-16); AST,SGOT 21 U/L (5-34); BILIRUBIN,TOTAL 0.3 mg/dL (0.2-1.2); BLOOD UREA NITROGEN 11 mg/dL (10-20); CALCIUM 9.4 mg/dL (8.4-10.2); CHLORIDE 105 mEq/L (98-107); CREATININE, serum 0.92 mg/dL (0.57-1.11); GLUCOSE 101 mg/dL (70-99); POTASSIUM 3.9 mEq/L (3.5-4.5); SODIUM 140 mEq/L (136-145); TOTAL PROTEIN 7.3 g/dl (6.2-8.1)
[2023-11-13] MEDS ORDERED: Iohexol 300 - 100 ML VIAL IV ONE (04:21)
[2023-11-13] MEDS ORDERED: NS 60 ML IV ONE (04:21)
[2023-11-13 04:46] LABS: ALCOHOL(ethanol),MEDICAL < 10 mg/dL (0-10); TROPONIN-I < 0.010 ng/mL (0.00-0.033)
[2023-11-13 05:10] LABS: COLLECTION METHOD CLEAN CATCH
[2023-11-13] MEDS ORDERED: Morphine 4 MG/ML VIAL IV ONE ×2 (05:15→06:45)
[2023-11-13 05:16] LABS: URINE APPEARANCE CLEAR (CLEAR/HAZY); URINE BLOOD NEGATIVE (NEGATIVE); URINE COLOR YELLOW (YELLOW); URINE GLUCOSE NEGATIVE (NEGATIVE); URINE KETONE NEGATIVE (NEGATIVE); URINE NITRATE NEGATIVE (NEGATIVE); URINE PROTEIN(semi-quant) NEGATIVE (NEGATIVE); URINE UROBILINOGEN 0.2 E.U/dL (0.2-1.0)
[2023-11-13 05:33] LABS: TRICYCLIC ANTIDEPRESS URINE NEGATIVE (NEGATIVE)
[2023-11-13 09:16] VITALS: BP 130/83; PULSE 69; TEMP 97.6
--- NOTE | 2023-11-13 09:49 | NUR ---
PT ON THE FLOOR FROM ER VIA BED. IV TO LEFT AND RIGHT AC IN PLACE, PARIKH PATENT AND WITHOUT ISSUES. PT REPORTS GENERALIZED PAIN. PT ORIENTED TO ROOM, CALL LIGHT, BED ABD VERBALIZED UNDERSTANDING. BED ALARM ON, CALL LIGHT IN REACH, BED IN LOWEST POSITION.
[2023-11-13] MEDS ORDERED: ASPIRIN PO SCH (10:58)
[2023-11-13] MEDS ORDERED: DIPYRIDAMOLE PO SCH (10:58)
[2023-11-13] MEDS ORDERED: NS 1,000 ML IV SCH (11:00)
[2023-11-13] MEDS ORDERED: Dextrose 50% Water 25 GM/50 ML SYRINGE IV PRN (11:00)
[2023-11-13] MEDS ORDERED: Ondansetron 4 MG/2 ML VIAL IV PRN (11:30)
[2023-11-13 11:43] VITALS: BP 135/80; PULSE 71; TEMP 97.3
[2023-11-13] MEDS ORDERED: Insulin Lispro (HumaLOG) SQ SCH (12:00)
[2023-11-13] MEDS ORDERED: Acetaminophen 500 MG TAB PO PRN (13:15)
[2023-11-13] MEDS ORDERED: oxyCODONE 5 MG TAB PO PRN (13:15)
[2023-11-13] MEDS ORDERED: Gabapentin 300 MG CAP PO SCH (14:00)
[2023-11-13] MEDS ORDERED: BRILINTA90 MG PO (15:03)
[2023-11-13] MEDS ORDERED: COSOPT 2%-0.5%10 ML OU (15:04)
[2023-11-13] MEDS ORDERED: CYMBALTA 30MG30 MG PO (15:04)
[2023-11-13] MEDS ORDERED: EMLA CREAM TOP (15:06)
[2023-11-13] MEDS ORDERED: LUMIGAN 2.5 ML2.5 M1 OU (15:06)
[2023-11-13] MEDS ORDERED: NURTEC ODT75 MG PO (15:07)
[2023-11-13] MEDS ORDERED: ZOLOFT 100MG100 MG PO (15:08)
[2023-11-13] MEDS ORDERED: SEROQUEL 2525 MG/TAB PO (15:08)
[2023-11-13] MEDS ORDERED: ZANAFLEX2 MG PO (15:09)
[2023-11-13] MEDS ORDERED: MULTI VITAMINS1 TAB PO (15:10)
[2023-11-13] MEDS ORDERED: XIIDRA1 EACH OU (15:10)
[2023-11-13] MEDS ORDERED: Gadoterate 20 ML VIAL IV ONE (15:15)
[2023-11-13 16:20] VITALS: BP 111/71; PULSE 65; TEMP 97.5
[2023-11-13 16:30] VITALS: BP_SYST 111
--- NOTE | 2023-11-13 19:36 | NUR ---
THIS NURSE AGREES WITH EL ROSENBERG ASSESSMENT
[2023-11-13 20:07] VITALS: BP 111/74; PULSE 69; TEMP 98
[2023-11-13 20:52] VITALS: BP_SYST 111
--- NOTE | 2023-11-13 20:54 | NUR ---
PATIENT IS RESTING IN BED WATCHING TV. REPORTS PAIN IN THE RIGHT LOWER QUADRANT OF HER ABDOMEN WELL IN THE RIGHT SIDE OF HER NECK WHICH SHE REPORTS 6/10. DENIES ANY SHORTNESS OF BREATH OR CHEST PAIN AT THIS TIME. SHE IS ALERT AND ORIENTED AND IS STABLE ON ROOM AIR. CALL LIGHT IS WITHIN REACH. BED IS LOCKED AND IN LOW POSITION. NEUROLOGIST CURRENTLY AT BEDSIDE VIA TELEHEALTH APPOINTMENT.
[2023-11-13] MEDS ORDERED: Atorvastatin 80 MG TAB PO SCH (21:00)
[2023-11-14] VITALS (8 sets, daily range): BP systolic 105–135; BP diastolic 67–85; PULSE 61–74; TEMP 97.7–98.2
[2023-11-14] MEDS ORDERED: Glucagon 1 MG VIAL IM PRN (07:15)
[2023-11-14] MEDS ORDERED: Dextrose (Glucose) 15 GM (4 x 3.75 GM) Chewable TABLET PACK PO PRN (07:15)
[2023-11-14] MEDS ORDERED: Dextrose 50% Water 25 GM/50 ML SYRINGE IV PRN (07:15)
[2023-11-14 08:45] LABS: BASO # 0.1 K/mm3 (0.0-0.2); BASO % 0.5 % (0.0-2.0); EOS # 0.2 K/mm3 (0.0-0.7); EOS % 1.9 % (0.0-4.0); GRAN # 5.6 K/mm3 (1.4-6.5); GRAN % 55.5 % (42.2-75.2); HEMOGLOBIN 11.9 g/dl (12.5-16.0); LYMPH # 3.6 K/mm3 (1.2-3.4); LYMPH % 36.3 % (20.0-51.0); MEAN CELL VOLUME 82 fl (80.0-100.0); MEAN CORPUSCULAR HEMOGLOBIN 30 pg (27-31); MEAN CORPUSCULAR HGB CONC 36 g/dl (33.0-37.0); MEAN PLATELET VOLUME 10.6 fl (7.4-10.4); MONO # 0.6 K/mm3 (0.1-0.6); MONO % 5.6 % (1.7-9.3); PLATELET COUNT 255 K/mm3 (130-400); RED BLOOD COUNT 4.03 M/mm3 (4.10-5.30); REDCELL DISTRIBUTION WIDTH-CV 14.2 % (11.5-14.5)
[2023-11-14 08:50] LABS: HEMATOCRIT 33.2 % (37.0-47.0)
--- NOTE | 2023-11-14 08:58 | NUR ---
Patient resting in bed, alert and oriented x 4. States she has pain in neck, abdomen and left leg. Tylenol provided. Getting fluids 100 mls/hr. Catheter springer in place, clear yellow output. Assessment completed, meds given. No further needs at this time. Call light within reach.
--- NOTE | 2023-11-14 09:13 | NUR ---
SUJATHA met with patient to complete initial assessment for discharge planning. Patient verified that she lives in [place] alone, lists her daughter Yong as her primary contact ([phone]). Patient sees Dr Conner as her PCP and [facility] pharmacy. Patient has a cane, rollator walker and shower chair and grab bars at home. Patient states she did not remember completing a DPOA but did show one on chart from previous admissions listing her sister Mary Fernando ([phone]) as agent and daughter Moises Denton as alternate. Patient states she requires assistance with cooking, cleaning and driving. Patient states she is in drug rehab through [facility] and admits to using cocaine about a week ago and continues to use gummies. Patient declined drug recovery resources when offered. Patient states that she has home health services but does not remember the agency. SUJATHA called patients sister Mary to inquire about patient's HH provider. She was unable to identify provider but states she will look through her emails for the name. She was given SUJATHA Alvarez's phone number to contact with HH information. Discharge plan: Home with HH
[2023-11-14 09:20] LABS: CALCIUM 8.7 mg/dL (8.4-10.2); CREATININE, serum 0.77 mg/dL (0.57-1.11); POTASSIUM 3.9 mEq/L (3.5-4.5)
--- NOTE | 2023-11-14 09:49 | NUR ---
rack worker spoke with patient's sister, Mary, regarding home health. Patient currently has caregiving services through [facility] whom come in assist with anything the patient needs. Patient also has PT/OT and mental health through an agency called [facility]. SW discussed discharge plan. Mary reports patient wants to stay independent as long as possible. SW asked if patient needs 24 hour care they will likely recommend a nursing facility. Mary stated her sister likely would not be in agreement with that. Mary reports she is living in [place] but she would be willing to be on the telephone if she needs to help with any conversation.
[2023-11-14 09:52] LABS: MAGNESIUM 1.9 mg/dL (1.6-2.6)
--- NOTE | 2023-11-14 10:01 | NUR ---
barge worker was notified by PT and OT that patient would be a good candidate for IPR. Dr. Palomo will be making an IPR consult. SW notified IPR director, Margarita, regarding this and she expressed the IPR team would review. DIscharge plan: IPR vs SNF
[2023-11-14 10:13] LABS: TSH w REFLEX 0.835 uIU/mL (0.350-4.940)
[2023-11-14] MEDS ORDERED: Acetaminophen 500 MG TAB PO PRN (10:15)
[2023-11-14] MEDS ORDERED: Sertraline 100 MG TAB PO SCH (10:20)
[2023-11-14] MEDS ORDERED: Ticagrelor 90 MG TAB PO SCH (10:22)
[2023-11-14] MEDS ORDERED: Dorzolamide/Timolol 2-0.5% Ophth Soln 10 ML BOTTLE OP SCH (10:22)
[2023-11-14 10:26] LABS: CHOLESTEROL RISK RATIO 2.6
[2023-11-14] MEDS ORDERED: SUMAtriptan 25 MG TAB PO PRN (10:30)
--- NOTE | 2023-11-14 13:34 | NUR ---
Data: Spiritual care visit attempted during Vice President Of Manufacturing rounds. Patient was sleeping. Assessment: None. Patient sleeping. Plan of Care: Chaplains will remain available as needed/required while Patient is admitted to this hospital.
[2023-11-14] MEDS ORDERED: LIPITOR 80MG80 MG PO (14:00)
[2023-11-14] MEDS ORDERED: ROXICODONE 55 MG/TAB PO (14:01)
[2023-11-14] MEDS ORDERED: TYLENOL 500MG500 MG PO (14:01)
[2023-11-14] MEDS ORDERED: IMITREX50 MG PO (14:02)
--- NOTE | 2023-11-14 15:09 | NUR ---
Report given to KATIA Escobar in IPR. Catheter springer and IV accessess removed. Pt to be transfered right now.
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
[2023-11-14] MEDS ORDERED: Latanoprost 0.005% Ophth Soln 2.5 ML BOTTLE OP SCH (21:00)
[2023-11-14] MEDS ORDERED: BIMATOPROST OP SCH (21:00)
[2023-11-14] MEDS ORDERED: [UNRECOGNIZED DRUG - OTHER] OP SCH (21:00)
[2023-11-14] MEDS ORDERED: Verapamil SR 120 MG TAB PO SCH (21:00)
[2023-11-15] MEDS ORDERED: Multivitamin TAB PO SCH (09:00)
[2023-11-15] MEDS ORDERED: DULoxetine 30 MG CAP PO SCH (09:00)
== END 2023-11-14 15:11 | DRG 65 ==
LOC: COL.ER 03:49 → MEDICAL 07:38
PROVIDERS: Emergency Medicine; Internal Medicine; ADMIT Internal Medicine
DX: I63.9 Cerebral infarction, unspecified (principal); G90.59 Complex regional pain syndrome I of other specified site; I69.954 Hemiplegia and hemiparesis following unspecified cerebrovascular disease affecting left non-dominant side; K21.9 Gastro-esophageal reflux disease without esophagitis; H40.9 Unspecified glaucoma; R47.81 Slurred speech; R29.810 Facial weakness; F17.210 Nicotine dependence, cigarettes, uncomplicated; Z79.82 Long term (current) use of aspirin; Z79.891 Long term (current) use of opiate analgesic; Z88.8 Allergy status to other drugs, medicaments and biological substances
CPT/HCPCS: A4314; A9575; J1650; J2270; J7030; Q3014; Q9967

== ENCOUNTER 2023-11-14 15:53 | Inpatient (IN) | payer MEDICARE, MEDICAID ==
[~2023-11-14] VITALS: Ht 162.6 cm; Wt 75.9 kg
[~2023-11-14 15:53] MED LIST changes: +BRILINTA90 MG PO; +CYMBALTA 30MG30 MG PO; +EMLA CREAM TOP; +IMITREX50 MG PO; +LIPITOR 80MG80 MG PO; +LUMIGAN 2.5 ML2.5 M1 OU; +MULTI VITAMINS1 TAB PO; +NURTEC ODT75 MG PO; +ROXICODONE 55 MG/TAB PO; +SEROQUEL 2525 MG/TAB PO; +TYLENOL 500MG500 MG PO; +XIIDRA1 EACH OU; +ZANAFLEX2 MG PO; +ZOLOFT 100MG100 MG PO
[2023-11-14] MEDS ORDERED: Naloxone 0.4 MG/ML VIAL IV PRN (16:00)
[2023-11-14] MEDS ORDERED: Polyethylene Glycol 3350 17 GM PDS PO PRN (16:00)
[2023-11-14] MEDS ORDERED: Docusate Sodium 100 MG CAP PO PRN (16:00)
[2023-11-14] MEDS ORDERED: Acetaminophen 325 MG TAB PO PRN (16:00)
[2023-11-14] MEDS ORDERED: Sennosides/Docusate 8.6-50 MG TAB PO PRN (16:00)
--- NOTE | 2023-11-14 16:00 | NUR ---
PATIENT SETTLED IN ROOM WITH BELONGINGS FROM MEDICAL UNIT. ADMISSION ASSESSMENT COMPLETE. ORIENTED PATIENT TO ROOM. ALERT AND ORIENTED. VSS. NO C/O PAIN, NAUSEA, OR VOMITING. CALL LIGHT WITHIN REACH. NO FURTHER NEEDS AT THIS TIME.
[2023-11-14 16:04] VITALS: BP 119/77; PULSE 65; TEMP 98.2
[2023-11-14] MEDS ORDERED: oxyCODONE 5 MG TAB PO PRN (16:15)
[2023-11-14] MEDS ORDERED: SUMAtriptan 25 MG TAB PO PRN (16:15)
[2023-11-14 17:00] VITALS: BP_SYST 119
[2023-11-14 18:06] VITALS: BP 119/77; PULSE 65; TEMP 98.2
--- NOTE | 2023-11-14 18:14 | NUR ---
Reveiwed assessments and notes made by KATIA Yoo. Agree with assessments.
[2023-11-14 19:00] VITALS: BP_SYST 129
--- NOTE | 2023-11-14 19:17 | NUR ---
RECEIVED CHANGE OF SHIFT REPORT FROM DAY SHIFT NURSES, LUIS ALFREDO. PATIENT UP IN CHAIR WITH VISITOR IN ROOM, EXIT ALARM ON, CALL LIGHT WITHIN PATIENT'S REACH. NO NEEDS REPORTED AT THIS TIME.
[2023-11-14] MEDS ORDERED: Verapamil SR 120 MG TAB PO SCH (21:00)
[2023-11-14] MEDS ORDERED: Ticagrelor 90 MG TAB PO SCH (21:00)
[2023-11-14] MEDS ORDERED: Gabapentin 300 MG CAP PO SCH (21:00)
[2023-11-14] MEDS ORDERED: BIMATOPROST OP SCH (21:00)
[2023-11-14] MEDS ORDERED: [UNRECOGNIZED DRUG - OTHER] OP SCH (21:00)
[2023-11-14] MEDS ORDERED: Dorzolamide/Timolol 2-0.5% Ophth Soln 10 ML BOTTLE OP SCH (21:00)
[2023-11-14] MEDS ORDERED: Latanoprost 0.005% Ophth Soln 2.5 ML BOTTLE OP SCH (21:00)
[2023-11-14] MEDS ORDERED: Atorvastatin 80 MG TAB PO SCH (21:00)
[2023-11-14 23:00] VITALS: BP 129/80; PULSE 76
[2023-11-15 06:02] VITALS: BP 127/76; PULSE 103; PULSE 76; TEMP 98.1
--- NOTE | 2023-11-15 06:59 | NUR ---
CHANGE OF SHIFT REPORT GIVEN TO DAY SHIFT NURSEZEHRA.
[2023-11-15 07:00] VITALS: BP_SYST 127
--- NOTE | 2023-11-15 07:13 | NUR ---
PATIENT UP IN ROOM WITH ASSIST X1 WITH GAIT BELT/FWW. PATIENT DENIES CHEST PAIN/SHORTNESS OF BREATHING/NAUSEA DURING SHIFT. CONTINUES WITH MILES HANDS CUSTOMER PROGRAM MANAGER UNEQUAL WITH LEFT WEAKER THAN RIGHT.
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
--- NOTE | 2023-11-15 08:47 | NUR ---
PT ATE 100 % OF BREAKFAST, NO NAUSEA OR VOMITING REPORTED. PT UP WITH THERAPY THIS AM. PT'S DAUGHTER VISITING PT, PT IS A/O X4 WITH A PLEASANT DEMEANOR. DENIES PAIN AT THIS TIME. ROUTINE AM MEDS GIVEN ORDERED. CARE PLAN REVIEWED WITH PATIENT.
[2023-11-15] MEDS ORDERED: Multivitamin TAB PO SCH (09:00)
[2023-11-15] MEDS ORDERED: DULoxetine 30 MG CAP PO SCH (09:00)
[2023-11-15] MEDS ORDERED: Sertraline 100 MG TAB PO SCH (09:00)
--- NOTE | 2023-11-15 13:51 | NUR ---
REPORT TO LYLE MONTALVO
--- NOTE | 2023-11-15 14:20 | NUR ---
head screen worker notes pt was on the medical floor and transferred to [facility]. SUJATHA met with pt who reports she lives alone in [place]. She reports her PCP as Dr. Conner and obtains medications from [facility] with no difficulties. She reports her daughter, Yong [phone] is her contact and also works for [employer] and assists her in the home. DPOA on file lists Mary, as primary and daughter, Moises as secondary. Pt was agreeable to this DPOA-HC. She reports to be independent with ADLS and uses a rolator and cane for DME. She is learning to drive again and her daughter drives her. She has [employer], [employer] [facility] for behavior needs, and [facility] for PT/OT/ST and transitional assistance in the community. SUJATHA discussed team meetings and family meetings that occur on and SW will be back to invite her to join this with family when confirmed. Pt had no further questions or concerns. Her goal is to return home. SUJATHA was informed by SUJATHA Alvarez that pt has court on November 22 regarding her son-in-law's conviction. SUJATHA called pt who reports it is against her son-in-law and she just "knew about it" and was not ordered to attend. She received a paper with details at home and does not know the time or info. She knows it is in [facility]. Pt's son-in-law is Angel Quinn, 42. Patient would like to attend via Zoom. SUJATHA called [facility] [phone] and spoke with Victim Coordinator, Kelsi who informs SUJATHA that a status hearing was held on November 12 and she did not need to attend this. She reports pt likely got the days mixed up and another is scheduled December 24. She reports pt will be informed and receieve a subpoena to attend. SUJATHA attempted to call pt's room with no answer to update her. Will update her tomorrow. Discharge Plan: re-eval
[2023-11-15 17:16] VITALS: BP 132/79; PULSE 66; TEMP 97.7
[2023-11-15] MEDS ORDERED: Phenol 1.4% Spray 180 ML BOTTLE MM PRN (17:30)
--- NOTE | 2023-11-15 18:06 | NUR ---
Performed shift assessment. Noted diminished lung sounds at MILES bases. Pt. mentioned bruising w/ unknown cause. Noted scattered bruising to inner aspect of MILES thighs. All other findings WNL. Pt. c/o 6/10 pain to head and neck and requests analgesia; states pain goal is 5/10. KATIA Mann, administered PRN Tylenol per JUN. No further complaints or requests at this time. Will continue to monitor.
[2023-11-15 18:46] VITALS: BP_SYST 132
--- NOTE | 2023-11-15 18:47 | NUR ---
RECEIVED CHANGE OF SHIFT REPORT FROM DAY SHIFT NURSE. PATIENT RESTING IN BED, REPORTS SLOWLY EATING SUPPER MEAL AT TIME OF REPORT. UP TO BATHROOM WITH NURSING, OBSERVED STEADY/EVEN GAIT. EXIT ALARM ON WHEN IN BED WITH CALL LIGHT WITHIN PATIENT'S REACH.
[2023-11-15 21:40] VITALS: BP 117/72; PULSE 71
[2023-11-16 05:34] VITALS: BP 138/95; PULSE 73; TEMP 98.4
--- NOTE | 2023-11-16 05:45 | NUR ---
REPORTS FEELING WEAK AND ACHY, SEE [facility] FOR VS TAKEN. DENIES CHEST PAIN/SHORTNESS OF BREATH/NAUSEA AT THIS TIME. DENIES DIZZINESS, VISUAL CHANGES, SPEECH IS CLEAR AND APPROPRIATE AT THIS TIME.
--- NOTE | 2023-11-16 07:10 | NUR ---
CHANGE OF SHIFT REPORT GIVEN TO DAY SHIFT NURSE, FAUZIA. PATIENT REPORTS THIS MORNING THAT SHE IS "ACHY ALL OVER.... FEEL WEAK" PATIENT COMPLAINED OF SORE THROAT. SEE MAR FOR MEDICATIONS GIVEN. PATIENT RESTING IN BED WITH EYES CLOSED, DID NOT WAKE DURING NURSE ROUNDS, BREATHING NONLABORED AND EVEN. EXIT ALARM ON, CALL LIGHT WITHIN PATIENT'S REACH. OBSERVED BP WITH 95 SBP, PATIENT DENIES CHEST PAIN/SHORTNESS OF BREATHE/NAUSEA AT TIME OF REPORT.
[2023-11-16 07:25] VITALS: BP_SYST 138
--- NOTE | 2023-11-16 09:24 | NUR ---
PT C/O SORE THROAT, GENERAL WEAKNESS, DENIES PAIN, DENIES OTHER S/S. PT ENCOURAGED TO EAT AND DRINK.
--- NOTE | 2023-11-16 10:14 | NUR ---
PT REPORTED WEAKNESS IN AM, TO THERAPY AT 08:30. PT RETURNS TO UNIT AT 10:15, TALKATIVE, CHEERFUL, AMBULATING WITH WALKER, IMPROVED MOOD.
--- NOTE | 2023-11-16 13:14 | NUR ---
PT WAS SITTING IN RECLINER, NOT ATTEMPTING TO EAT. NURSE TALKED TO PT ABOUT EATING HABITS AT HOME, AND PT REPORTS SHE DOES EAT AT HOME BUT "IT'S HARD TO EAT WHEN YOUR THROAT HURTS AND YOU JUST WANT YOUR OWN FOOD." PT ENCOURAGED TO EAT TO CON[employer]ME [employer]IES, TO ASSIST WITH HEALING. PT OFFERED ALTERNATIVE FOOD CHOICES, AGREES TO AND EATS VANILLA PUDDING CUP. PT WITH THERAPY AT THIS TIME.
[2023-11-16] MEDS ORDERED: predniSONE 20 MG TAB PO SCH (13:48)
--- NOTE | 2023-11-16 14:26 | NUR ---
licensed master social worker met with pt to check in and assess for any needs. Pt had her sister, Mary on speaker. Mary was questioning the resumption of patient's multiple home services. SW advised this should not be an issue and she could send updates or they can reach out to pt's specific director of casework department. Pt reports she talked with Sal Plunkett about her services who reported it would be fine to resume. SW discussed scheduling a family meeting. Pt was agreeable to Sunday at 10:15am. Mary will attend via phone and daughterYong will be in person. SW updated pt on the court information, she states "i know" when SW advised it is for December 23. Pt reports being concerned with being alone at night and needing more assistance then. She and Mary discussed that her daughter would not be able to assist. Pt and her sister state they will reach out to [address] [place] [address] to see if they can provide staffing for night care. SUJATHA advised she will follow-up Sunday with all reccomendations from their meeting as pt has only been in [facility] for two days. No further needs. SUJATHA informed [facility] Director Margarita of family meeting time. SUJATHA spoke with Kiarra director of casework department, Sal and asked if they needed anything if pt were to resume services. She reports, "no as long as it is within 3 months." Sal reports pt receives physical therapy through [facility] and that PT is on vacation in November. SUJATHA inquired about her switching to one with [facility] home services. She reports this would take too long and they have certain contracts/waivers. SUJATHA advised she will follow-up regarding if PT is even needed at Sunday's meeting. Sal reports she has been in contact with pt. SUJATHA spoke with [facility] who reports they have pt for ST, OT, cognition, and transitional living. They could add PT with discharge orders, if needed. They requested updates to F: [phone]. SUJATHA faxed updates. Discharge Plan: re-eval
[2023-11-16 18:58] VITALS: BP 110/66; PULSE 72; TEMP 98.1
[2023-11-16 19:02] VITALS: BP_SYST 110
--- NOTE | 2023-11-16 22:22 | NUR ---
PATIENT IS LAYING IN BED IN THE POSITION REPORTING A CRAMPING PAIN IN HER LOWER ABDOMEN, SYMMETRICAL BRUISES ARE NOTED TO BOTH THE RIGHT AND LEFT LOWER QUADRANT. SHE IS ALSO CONCERNED ABOUT A BRUISE WHICH HAS NOT HEALED ON HER INNER LEFT THIGH. DENIES ANY NAUSEA OR VOMITING. DENIES SHORTNESS OF BREATH OR CHEST PAIN. CALL LIGHT IS WITHIN REACH. BED IS LOCKED AND IN LOW POSITION.
--- NOTE | 2023-11-17 01:15 | NUR ---
RN INFORMED HOSPITALIST CECILY RHODES APRN OF PATIENT'S ABDOMINAL PAIN AND BRUISING. CECILY CAME TO ASSESS PATIENT AND REVIEWED HER ABDOMINAL CT WHICH WAS COMPLETED UPON ADMISSION. RN BLADDER SCANNED PATIENT WHILE HOSPITALIST WAS AT BEDSIDE AND 285 ML OF FLUID WAS FOUND IN BLADDER, AFTER SCANNING, PATIENT DID NEED TO URINATE AND CECILY REQUESTED FOR RESIDUAL SCAN TO BE DONE, AFTER URINATING LESS THAN 15 ML REMAINED IN BLADDER. PATIENT CONTINUES TO RATE HER ABDOMINAL PAIN 6/10 AND STATES IT FEELS LIKE AN ACHE OR LIKE BAD PERIOD CRAMPS BUT ALSO STATES SHE HAS NOT HAD A MENSTRUAL PERIOD IN ALMOST 30 YEARS.
[2023-11-17 05:23] VITALS: BP 111/64; PULSE 84; TEMP 97.9
[2023-11-17 06:30] VITALS: BP_SYST 111
--- NOTE | 2023-11-17 06:30 | NUR ---
Pt sleeping in bed. Bed alarm on and call light in reach.
--- NOTE | 2023-11-17 08:30 | NUR ---
Pt laying in bed. A&Ox4. VSS. S1S2. Pt speech is clear, but speaking with teeth shut and can be difficult to understand. S1S2. Clear lungs on RA. ABD round, soft, non-tender with audible bowel sounds. Palpable puslses with 4/5 strength in all extremities. Pt denies pain, n/v, headaches. Pt reports 2 large ecchymosis spots on RLQ and LLQ of ABD, skin intact. Pt reported ecchymossis on upper thighs. Due to bruising, Pt declined lovenox injection. No further needs. Call light in reach and bed alarm on.
[2023-11-17 18:58] VITALS: BP 113/72; PULSE 76; TEMP 97.9
[2023-11-17 19:56] VITALS: BP_SYST 113
--- NOTE | 2023-11-17 22:00 | NUR ---
PATIENT IS LAYING IN BED WATCHING TV. CONTINUES TO HAVE PAIN IN LOWER ABDOMEN WHICH SHE REPORTS 6/10 AND DESCRIBES FEELING LIKE MENSTRUAL CRAMPS. DENIES ANY BURNING OR DIFFICULTY URINATING. ASSISTED PATIENT TO RESTROOM WITH STANDBY ASSIST AND WALKER. RETURNED TO BED WITH CALL LIGHT IN REACH. BED LOCKED AND IN LOW POSITION.
[2023-11-18 06:00] VITALS: BP 103/68; PULSE 73; TEMP 98.1
[2023-11-18 07:18] VITALS: BP_SYST 103
--- NOTE | 2023-11-18 09:57 | NUR ---
PT RESTING IN BED, ALERT AND ORIENTEDX4. RATES PAIN 6/10 IN THROAT AND RIGHT THIGH IS "ACHY". ASSESSED AND GAVE MORNING MEDS. PT HAS UPPER AND LOWER EXTREMITIES LEFT SIDED WEAKNESS. SPEACH IS SLIGHTLY SLURRED. PT STATES SHE HAS ALL FEELING BACK. GAVE PRN THROAT SPRAY AT PT REQUEST. NO OTHER COMPLAINTS AT THIS TIME. CALL LIGHT WITHIN REACH.
[2023-11-18 18:01] VITALS: BP 128/86; PULSE 80; TEMP 98
[2023-11-18 19:19] VITALS: BP_SYST 128
--- NOTE | 2023-11-19 01:08 | NUR ---
PT ALERT AND OREIENTED X4, SITTING UP IN RECLINER AT SHIFT CHANGE. HER TWO DAUGHTERS AND MALE FRIEND VISITED HER THROUGOUT THE DAY. VERY PLEASANT AND EXPRESSES THE DESIRE TO GO HOME.PT IS UP AND ABOUT AMBUALATES WELL AROUND HER ROOM WITH HER WALKER AND GAIT BELT. ASSESSED AND MEDICATED PER ORDERS. DENIES FUTRTHER NEED AT THIS TIME. CALL LIGHT WITHIN REACH. FALL PRECAUTIONS IN PLACE.
[2023-11-19 05:58] VITALS: BP 117/70; PULSE 76; TEMP 98
[2023-11-19 07:00] VITALS: BP_SYST 117
--- NOTE | 2023-11-19 08:00 | NUR ---
PATIENT IS A&O X4. VSS. TRANFERS WITH SBA AND WALKER. PRN TYLENOL GIVEN FOR PAIN. FALL PRECAUTIONS IN PLACE. SHIFT ASSESSMENT COMPLETE. NO C/O N/V. CALL LIGHT AND PERSONAL BELONGINGS WITHIN REACH. NO FURTHER NEEDS AT THIS TIME.
--- NOTE | 2023-11-19 11:36 | NUR ---
PATIENT ALERT AND ORIENTED X4. VSS. PATIENT HERE FOR R/O CVA VS TIA. PATIENT DENIES ANY PAIN THIS AM. AM MEDS ADMINISTERED. PATIENT ON RA, TOLERATING PO. NO FURTHER NEEDS. CALL LIGHT IN REACH. CHAIR ALARM ON.
--- NOTE | 2023-11-19 14:06 | NUR ---
tangled yarn worker met with pt to complete check-in. She was on the phone and had no concerns for SW. SW reminded her of family meeting this Sunday. Discharge Plan: re-eval
--- NOTE | 2023-11-19 15:00 | NUR ---
Admission QIM scores were reviewed by the team. Code of 88 chosen for oral hygiene was determined by team discussion to be the most usual performance before interventions for this patient during the assessment period. Code of 3 chosen for lying to sitting side of bed was determined by team discussion to be the most usual performance before interventions for this patient during the assessment period. Code of 3 chosen for sit to stand was determined by team discussion to be the most usual performance for this patient during the discharge assessment period. Code of 3 chosen for chair to bed was determined by team discussion to be the most usual performance for this patient during the discharge assessment period. Code of 3 chosen for walking 10 feet was determined by team discussion to be the most usual performance for this patient during the discharge assessment period. Code of 3 chosen for walking 50 feet w/ 2 turns was determined by team discussion to be the most usual performance before interventions for this patient during the discharge assessment period. Code of 3 chosen for walking 150 feet was determined by team discussion to be the most usual performance before interventions for this patient during the assessment period. Code of 3 chosen for walk 10 feet on uneven surface was determined by team discussion to be the most usual performance for this patient during the discharge assessment period. Code of 3 chosen for slat pickler objects was determined by team discussion to be the most usual performance before interventions for this patient during the assessment period.--PD Linda
[2023-11-19 17:08] VITALS: BP 105/63; PULSE 72; TEMP 98.2
[2023-11-19 19:26] VITALS: BP_SYST 105
--- NOTE | 2023-11-19 19:27 | NUR ---
RECEIVED CHANGE OF SHIFT REPORT FROM DAY SHIFT NURSE. PATIENT UP IN CHAIR, EXIT ALARM ON, CALL LIGHT WITHIN PATIENT'S REACH. NO NEEDS REPORTED AT TIME OF REPORT.
--- NOTE | 2023-11-19 20:00 | NUR ---
REPORTS SENSATION TO LUE AND LLE IS LESS COMPARED TO RUE/RLL WITH RLE "MORE" SENSITIVE HISTORICALLY THAT REMAINS UNCHANGED. SPEECH IS CLEAR AND APPROPRIATE, DENIES PROBLEMS WITH SWALLOWING. UP WITH FWW WITH NO REPORTED PROBLEMS OR CONCERNS AT THIS TIME.
[2023-11-19 21:15] VITALS: BP 122/77
--- NOTE | 2023-11-19 21:47 | NUR ---
PATIENT RESTING IN BED, EXIT ALARM ON, CALL LIGHT WITHIN PATIENT'S REACH. REQUESTED AND GIVEN PAIN MEDS FOR LEVEL 6/10 GENERALIZED PAIN.
[2023-11-20 05:13] VITALS: BP 116/73; PULSE 78; TEMP 97.9
--- NOTE | 2023-11-20 07:02 | NUR ---
CHANGE OF SHIFT REPORT GIVEN TO DAY SHIFT NURSEALANNAH. PATIENT RESTING IN BED, EXIT ALARM ON, CALL LIGHT WITHIN PATIENT'S REACH.
[2023-11-20 07:04] VITALS: BP_SYST 116
--- NOTE | 2023-11-20 09:43 | NUR ---
PATIENT ALERT AND ORIENTED X4. VSS. PATIENT HERE FOR CVA SYMPTOMS, R/O CVA VS TIA. PATIENT DENIES ANY PAIN THIS AM. AM MEDS ADMINISTERED. PATIENT REQUESTED PRN MIRALAX. NO FURTHER NEEDS. CALL LIGHT IN REACH. CHAIR ALARM ON.
--- NOTE | 2023-11-20 13:18 | NUR ---
The Interdisciplinary team discussed making the patient Modified Independent in her room during Huddle. Her current Gonzales Fall Score is low at 15 as nursing documented. Her Tinetti score was low at 24. She is currently using a walker w/ wheels for mobility & self care & demonstrates good safety awareness. The team feels she is capable of being modified Independent in her room at this time as she is aware of her deficits/limitations & cognitively able to problem solve her situations.--Margarita Dubois, PD
--- NOTE | 2023-11-20 14:03 | NUR ---
construction worker faxed updated to [facility]. SUJATHA called them and spoke with Emili who reports pt is on the Brain Injury waiver and obtains transitional living, OT, and cognitive services. SUJATHA advised she was not familiar with this and pt will need PT to assess her and also ST. She reccomended sending over a HH referral. SUJATHA informed her she had. Discharge Plan: home with services/HH, likely tomorrow
[2023-11-20 16:46] VITALS: BP 126/72; PULSE 80; TEMP 98.2
[2023-11-20 19:00] VITALS: BP_SYST 122
--- NOTE | 2023-11-20 19:08 | NUR ---
RECEIVED CHANGE OF SHIFT REPORT FROM DAY SHIFT NURSE.
--- NOTE | 2023-11-20 20:00 | NUR ---
PATIENT UP IN ROOM INDEPENDENTLY WITH NO REPORTED PROBLEMS OR CONCERNS. CALL LIGHT WITHIN PATIENT'S REACH. DENIES ANY NEEDS AT THIS TIME.
[2023-11-20 20:30] VITALS: BP 122/70
[2023-11-21 05:21] VITALS: BP 119/73; PULSE 66; TEMP 98.1
[2023-11-21 07:00] VITALS: BP_SYST 119
--- NOTE | 2023-11-21 07:12 | NUR ---
CHANGE OF SHIFT REPORT GIVEN TO DAY SHIFT NURSE, SUHA
[2023-11-21] MEDS ORDERED: LIPITOR 80MG80 MG PO (08:44)
[2023-11-21] MEDS ORDERED: SEROQUEL 2525 MG/TAB PO (08:49)
[2023-11-21] MEDS ORDERED: NORCO 325 MG-51 TAB PO (08:50)
--- NOTE | 2023-11-21 10:55 | NUR ---
PATIENT ALERT AND ORIENTED X4. VSS. PATIENT HERE FOR R/O OF CVA VS TIA. PATIENT DENIES ANY PAIN. AM MEDS ADMINISTERED. NO FURTHER NEEDS. CALL LIGHT IN REACH.
--- NOTE | 2023-11-21 11:05 | NUR ---
DISCHARGE INSTRUCTIONS AND PATIENT EDUCATION DONE WITH PATIENT AND FAMILY. PATIENT VERBALIZES UNDERSTANDING. PATIENT BELONGINGS GATHERED AND PATIENT ESCORTED DOWN TO VEHICLE BY NURSE AND DAUGHTER. DISCHARGE COMPLETE.
--- NOTE | 2023-11-21 13:39 | NUR ---
wafer polishing worker attended team conference and pt was determined to be safe to discharge home today with resumption of her current services. SW attended family meeting with pt's family and she was agreeable to discharge today. She had no concerns. SUJATHA completed IM from Medicare with pt who signed and verbalized understanding. Copy provided and original in chart. SUJATHA advised she will send discharge orders to [facility] so they can evaluate her. Pt was agreeable and inquired if her current services were "stopped." SUJATHA advised she did not "stop" any services. SUJATHA faxed discharge orders to [facility]. They later called and confirmed if pt needed correction and SUJATHA informed her she did not need it. Discharge Plan: home today with [facility] and other services
--- NOTE | 2023-11-22 14:35 | NUR ---
Discharge QIM scores were reviewed by the team. Code of 6 chosen for walking 150 feet was determined by team discussion to be the most usual performance for this patient during the discharge assessment period. Code of 6 chosen for walk 10 feet on uneven surface was determined by team discussion to be the most usual performance for this patient during the discharge assessment period. Code of 6 chosen for 1 step was determined by team discussion to be the most usual performance for this patient during the discharge assessment period. Code of 6 chosen for 4 steps was determined by team discussion to be the most usual performance for this patient during the discharge assessment period. Code of 6 chosen for 12 steps was determined by team discussion to be the most usual performance for this patient during the discharge assessment period.--Margarita Dubois,
== END 2023-11-21 11:05 | disposition home health service (06) | DRG 57 ==
PROVIDERS: ADMIT Physical Medicine & Rehabilitation Sports Medicine
DX: I69.354 Hemiplegia and hemiparesis following cerebral infarction affecting left non-dominant side (principal); G90.59 Complex regional pain syndrome I of other specified site; I69.392 Facial weakness following cerebral infarction; I69.398 Other sequelae of cerebral infarction; I69.328 Other speech and language deficits following cerebral infarction; H54.7 Unspecified visual loss; K21.9 Gastro-esophageal reflux disease without esophagitis; I10 Essential (primary) hypertension; G62.9 Polyneuropathy, unspecified; R26.89 Other abnormalities of gait and mobility; H40.9 Unspecified glaucoma; M62.838 Other muscle spasm; G43.009 Migraine without aura, not intractable, without status migrainosus; F32.A Depression, unspecified; Z79.82 Long term (current) use of aspirin; Z79.899 Other long term (current) drug therapy; Z79.891 Long term (current) use of opiate analgesic; Z74.09 Other reduced mobility; I69.391 Dysphagia following cerebral infarction; R13.10 Dysphagia, unspecified; R10.9 Unspecified abdominal pain
CPT/HCPCS: A9284; J1650; J7512